=== PATIENT | male | born 1965 | race Caucasian/White ===

== ENCOUNTER → 2017-01-01 | Outpatient (CLI) | payer BC ==
[~2017-01-01] MED LIST: IBUPROFEN400 MG PO; NOMEDS XX
--- NOTE | 2017-01-01 15:10 | RADIOLOGY REPORT PS360 ---
EXAM: LUMBAR SPINE 5 VIEWS HISTORY: LOW BACK PAIN ORDERING PHYSICIAN: Tim Torres PATIENT AGE: 51 years COMPARISON: None FINDINGS: Normal alignment. No fracture or dislocation. No lytic or blastic change. There is mild degenerative disc disease at L4-L5 and L5-S1 with decrease in the disc space and minor osteophyte formation. Mild facet hypertrophic changes are present at L5-S1 IMPRESSION: 1. Mild lumbar spondylosis with degenerative disc disease at L4-L5 and L5-S1 and mild facet arthritic change at L5-S1 2. No acute finding
[2017-01-01 17:41] LABS: HEMOGLOBIN 13.5 g/dL (14.1-18.0); LYMPH # 1.8 K/mm3 (0.7-4.5); LYMPH % 30.8 % (10-50)
[2017-01-01 17:48] LABS: AMPHETAMINES/METAMPHETAMINES NEGATIVE ng/mL (<1000)
[2017-01-01 17:58] LABS: BUN 19 mg/dL (7-18)
[2017-01-01 18:06] LABS: GFR (ESTIMATED) 58 ML/MIN (>60)
[2017-01-03 06:38] LABS: Creatinine, Urine 167.1 mg/dL (Not Estab.); Microalbumin, Urine 38.5 ug/mL (Not Estab.)
== END ==
LOC: LAB 13:54 → RAD 13:54
PROVIDERS: Nurse Practitioner Family
DX: M54.5 Low back pain (principal); E11.9 Type 2 diabetes mellitus without complications; I25.10 Atherosclerotic heart disease of native coronary artery without angina pectoris

== ENCOUNTER → 2017-06-10 | Day surgery (SDC) | payer BC ==
[2017-06-10 08:14] LABS: HEMOGLOBIN 12.7 g/dL (14.1-18.0); LYMPH # 2.2 K/mm3 (0.7-4.5); LYMPH % 28.5 % (10-50)
[2017-06-10 08:19] LABS: BUN 28 mg/dL (7-18)
[2017-06-10 08:20] LABS: GFR (ESTIMATED) 53 ML/MIN (>60)
--- NOTE | 2017-06-10 10:21 | RADIOLOGY REPORT PS360 ---
CARDIAC CATHETERIZATION DATE OF CATHETERIZATION:06/10/2017 9:00 AM PROCEDURES: 1. Left heart catheterization 2. Left ventriculogram 3. Selective coronary angiogram 4. FFR to the LAD 5. Drug-eluting stent deployment to the mid LAD 6. Drug-eluting stent deployment to the mid first diagonal artery INDICATION FOR TEST: 1. Abnormal high risk Myoview anterior apical ischemia 2. Ischemic response to adenosine FFR index 0.71 in the LAD 3. Coronary artery disease 4. Angina pectoris class III and IV Informed consent was obtained prior to the procedure. COMPLICATIONS: None ESTIMATED BLOOD LOSS: Less than 10 ml. TECHNIQUE: One percent lidocaine used to anesthetize the right anterior aspect of the wrist. The right radial artery was accessed via the Seldinger technique. A 6 [place] sheath was placed in the right radial artery. 2.5 mg of verapamil, 800 mcg of nitroglycerin and 5000 U Heparin were given through the arterial sheath. A trap catheter was used to perform left heart catheterization left ventriculogram and selective coronary angiogram. At the end of the diagnostic angiogram and additional 4000 units of heparin was administered intravenously creating an ACT of 359 seconds. An ikari left guide catheter was placed in the ascending aorta and an FFR wire was normalized. The guide catheter was used intubate the left main artery and the wire was placed into the mid LAD. Adenosine was infused and the FFR index dropped to 0.71. Following this a 3.5 x 15 mm resolute [place] stent was deployed at 18 vilma reducing the hemodynamically severe stenosis to 0%. A choice PT floppy wire was placed into the first diagonal artery and a 2.5 x 12 mm noncompliant balloon was used to dilate the ostium at 24 vilma. Following this a 2.25 x 15 mm resolute [place] stent was deployed at 12 vilma in the mid diagonal artery reducing the 99% stenosis to 0%. The closing ACT was 246 seconds therefore an additional 3000 units of heparin was administered intravenously. MIKA-3 flow was present before and after the procedure down both the LAD and diagonal artery. At the end of the procedure the apparatus was removed sheath was removed good hemostasis was achieved using TR banding patient was transferred to the postop holding area in stable condition ANGIOGRAPHIC RESULTS: 1. The left main artery normal 2. The left anterior descending artery has very proximal 20-30% concentric stenosis followed by a stent which extends proximally into the mid segment. Distal to the stent is a 40-50% stenosis. In the mid vessel along tortuosity there are 50% stenoses at these bands. Distally there is a long 90% stenosis in the LAD as it wraps the apex and a 2 mm segment. The first diagonal artery has an ostial 80% stenosis and a mid vessel 99% stenosis. 3. The circumflex artery is a nondominant vessel and has 10-20% proximal stenosis 50% stenosis in the large obtuse marginal artery 4. The right coronary artery is a dominant vessel and has proximal mid vessel 20 and 30% stenoses. There are stents throughout the mid segment and distal segment which are widely patent free of in-stent restenosis. The posterior descending artery has proximal 40% and a mid vessel 70-80% focal lesion. The posterior lateral ventricular branch has an ostial proximal 60% process 5. The MEDINA ventriculogram reveals normal 65% 6. The left ventricular end-diastolic pressure mildly elevated at 20 mmHg IMPRESSION: 1. Were artery disease as described above 2. Successful stenting of the mid LAD hemodynamically severe stenosis reduced to 0% with 1 drug-eluting stent 3. Vessel stenting of the mid first diagonal artery 99% stenosis reduced to 0% with 1 drug-eluting stent preceded by angioplasty of the ostium of this first diagonal artery reducing the stenosis to 0% 4. Moderate stenosis in the circumflex artery 5. Severe stenosis in the very distal LAD along with moderate disease in the mid to distal LAD along tortuous bend 6. Mild to moderate disease in the right coronary artery as described above with widely patent stents in the right coronary artery 7. Normal ejection fraction 8. Mildly elevated LVEDP PLAN: 1. Aspirin Plavix 2. LDL less than 55 3. Cardiac rehabilitation 4. Avoidance of tobacco products 5. Risk factor modification
[2017-06-10 14:52] VITALS: BP 127/75
== END ==
LOC: CATHLAB 07:44
PROVIDERS: Internal Medicine
PROC: B2111ZZ Fluoroscopy of Multiple Coronary Arteries using Low Osmolar Contrast (ICD-10-PCS; 2017-06-10)
PROC: B2151ZZ Fluoroscopy of Left Heart using Low Osmolar Contrast (ICD-10-PCS; 2017-06-10)
PROC: 4A033BC Measurement of Arterial Pressure, Coronary, Percutaneous Approach (ICD-10-PCS; 2017-06-10)
PROC: 02713EZ Dilation of Coronary Artery, Two Arteries with Two Intraluminal Devices, Percutaneous Approach (ICD-10-PCS; 2017-06-10)
PROC: 4A023N7 Measurement of Cardiac Sampling and Pressure, Left Heart, Percutaneous Approach (ICD-10-PCS; principal; 2017-06-10 08:30)
DX: I25.119 Atherosclerotic heart disease of native coronary artery with unspecified angina pectoris (principal); Z72.0 Tobacco use; R94.39 Abnormal result of other cardiovascular function study; I10 Essential (primary) hypertension
CPT/HCPCS: C1725; C1769; C1876; J0153; J1644; Q9967

== ENCOUNTER → 2017-07-02 | Outpatient (CLI) | payer BC | LOC: COP 14:54 | DX: I10 Essential (primary) hypertension (principal) ==

== ENCOUNTER → 2017-07-27 | Outpatient (CLI) | payer BC ==
[2017-07-27 17:10] LABS: HEMOGLOBIN 13.3 g/dL (14.1-18.0); LYMPH # 2.3 K/mm3 (0.7-4.5); LYMPH % 24.3 % (10-50)
[2017-07-27 17:31] LABS: AMPHETAMINES/METAMPHETAMINES NEGATIVE ng/mL (<1000)
[2017-07-27 17:53] LABS: BUN 26 mg/dL (7-18)
[2017-07-27 18:02] LABS: GFR (ESTIMATED) 49 ML/MIN (>60)
[2017-07-29 09:37] LABS: Creatinine, Urine 196.7 mg/dL (Not Estab.)
== END ==
LOC: LAB 16:58
PROVIDERS: Nurse Practitioner Family
DX: I25.10 Atherosclerotic heart disease of native coronary artery without angina pectoris (principal)